=== PATIENT | female | born 1965 | race Caucasian/White ===

== ENCOUNTER 2019-05-27 11:06 | Outpatient (CLI) | payer MEDICARE, SELFPAY ==
--- NOTE | ~2019-05-27 | US_ITS ---
EXAMINATION: US abdomen complete EXAM DATE: 05/27/2019 11:56 INDICATION: Right upper quadrant pain. TECHNIQUE: Multiple grayscale and Doppler images of the complete abdomen were obtained (by a technolo gist who performed the scan) and subsequently reviewed. There is no prior study for comparison. FINDINGS: The abdominal aorta is normal in caliber. Visualized portion IVC is patent. The pancreatic head a nd body are normal in appearance. The pancreatic tail is not visualized. The liver has normal echogenicity and contour. There are no focal liver lesions identified. There is no evidence of intrahepatic biliary duct dilation. Portal venous flow was seen in the hepatopedal , normal direction and has normal Doppler waveform. Common bile duct measures 3 mm, which is normal. The gallbladder wall is normal in thickness, with ex pected amount of distention. No sonographic evidence of pericholecystic fluid. There is no cholelit hiases. Technologist performing exam reports patient did not demonstrate sonographic Barrera's sign. Please note that this sign is less reliable in patients who have received pain medication. Right kidney: There is normal contour and echogenicity. It measures 11.0 x 6.0 x 7.2 centimeters. There are no focal renal lesions identified. There is no hydronephrosis. Left kidney: There is normal contour and echogenicity. It measures 11.3 x 6.2 x 6.8 centimeters. T here are no focal renal lesions identified. There is no hydronephrosis. The spleen measures 12.4 centimeters and is morphologically normal. IMPRESSION: 1. Unremarkable complete abdominal ultrasound exam. Reviewed, dictated and finalized at location B. DING CLEANING SUPERVISOR
== END 2019-05-27 11:07 | disposition home or self-care (01) ==
PROVIDERS: PCP Internal Medicine; Visit Provider Internal Medicine
DX: R10.11 Right upper quadrant pain (principal); R10.12 Left upper quadrant pain
CPT/HCPCS: 76700

== ENCOUNTER 2019-05-27 12:27 | Observation (INO) | payer MEDICARE, SELFPAY ==
[2019-05-27] VITALS (15 sets, daily range): BP systolic 116–146; BP diastolic 61–78; PULSE 60–70; RESP 8–22; TEMP 36.3–36.8; O2SAT 97–100; BMI 40.8
--- NOTE | ~2019-05-27 | XR_ITS ---
EXAMINATION: XR chest 2V DATE: 05/27/2019 13:19 INDICATION: Low chest pain. TECHNIQUE: Frontal and lateral views of the chest were obtained. COMPARISON: Chest 2 views 05/07/2004, chest CT 05/07/2004 FINDINGS: The chest demonstrates clear lungs without pneumonia, pleural effusion, or pneumothorax. Th e heart size is normal. IMPRESSION: 1. No acute cardiopulmonary disease. Reviewed, dictated and finalized at location A. 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
--- NOTE | 2019-05-27 12:36 | ECG_ITS ---
Measurements Intervals [place] Rate: 67 P: 43 SC: 151 QRS: 48 QRSD: 106 T: 52 QT: 405 QTc: 428 Interpretive Statements SINUS RHYTHM BASELINE ARTIFACT- I, II, III, AVR, AVL NORMAL ECG Electronically Signed On 05-27-2019 16:04:11 CHIEF MEDICAL DIRECTOR by Lupillo Parsons D.O.
--- NOTE | 2019-05-27 12:49 | ED.CHESTPAIN ---
HPI - Chest Pain General Chief Complaint: Chest Pain Stated Complaint: cp Time Seen by Provider: 05/27/19 12:44 Source: patient Mode of arrival: ambulatory Limitations: no limitations History of Present Illness HPI narrative: The pt is a 54 y/o female who presents to the ED with c/o intermittent CP that began over 2 days ago. The pt's pain began under her rt breast and then began to radiate throughout her chest and to her back. She describes the pain as a squeezing and tightness. The pt states that she was at [facility] 2 days ago for the same sx, where her EKG, cardiac enzymes, and CT ABD were all negative. The only thing [facility] doctors could find was mild colitis, but the pt states that she would not be at the ED if her pain was only mild. Her pain is alleviated with OTC pain medications but only for a short amount of time. The pt reports nausea and vomiting from the pain. Her PCP, Dr. Garcia, ordered a ABD US this morning to rule out cholelithiasis, which also came back negative. 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 The pt denies being on any blood thinners but notes a PMHX of HTN, HLD, DM, and asthma. Both the pt's mother and father have cardiac problems but they did not start until the age of 70. MD complaint: chest pain Onset (ago): day(s) (over 2 days ago) Timing of current episode: other (intermittent) Pain location: other (chest) Pain radiation: back Quality: tightness and other (squeezing) Relieving factors: other (OTC pain medication) Associated symptoms: nausea and vomiting Related Data Home Medications Medication Instructions Recorded Confirmed albuterol sulfate 90 mcg/actuation 1 puff INHALATION Q4H PRN 04/14/19 aerosol inhaler ascorbate calcium (vitamin C) 500 500 mg PO DAILY 04/14/19 mg tablet azelastine 0.15 % (205.5 mcg) 2 spray NASAL DAILY 04/14/19 nasal spray calcium carbonate 600 mg calcium 600 mg PO DAILY 04/14/19 (1,500 mg) tablet fentanyl 12 mcg/hr transdermal 1 patch TRANSDERM Q72H 04/14/19 patch hydroxychloroquine 200 mg tablet 200 mg PO BID 04/14/19 meloxicam 15 mg tablet 15 mg PO DAILY 04/14/19 metformin 1,000 mg tablet 1,000 mg PO DAILY 04/14/19 montelukast 10 mg tablet 10 mg PO DAILY 04/14/19 oxycodone-acetaminophen 10 mg-325 1 tablet PO .Q12 PRN tablet 04/14/19 mg tablet Allergies Allergy/AdvReac Type Severity Reaction Status Date / Time Cephalosporins Allergy Mild Swelling Verified 05/27/19 12:39 cephalexin Allergy Unknown Swelling Verified 05/27/19 12:39 Review of Systems Review of Systems: All systems reviewed & are unremarkable except as noted in HPI and below Cardiovascular: Cardiovascular: Reports chest pain Gastrointestinal: Gastrointestinal: Reports nausea and Reports vomiting PMFSH Past Medical History Medical History (Updated 05/27/19 @ 14:34 by Juliano Alexander MD) Asthma Back pain Bronchitis Cataracts, bilateral Cervical cancer Depression Diabetes Eczema Endometriosis GERD (gastroesophageal reflux disease) Hypertension Irritable bowel Kidney stones Liver disease fatty liver Pneumonia Sleep apnea STD (sexually transmitted disease) Tuberculosis UTI (urinary tract infection) Surgical History Surgical History (Updated 05/27/19 @ 14:01 by Cherri Zhang) H/O local excision of skin lesion H/O: hysterectomy Hx of appendectomy Hx of section Social History Social History Smoking status: Current every day smoker Alcohol intake: never Gender identity (if verbalized by the patient): Female Exam Narrative: Exam Narrative: General appearance: Well-developed, well-nourished Skin: Normal color Head: Normocephalic, nontraumatic Eyes: Clear conjunctiva ENT: Oropharynx normal, ears normal, nose normal Neck: Supple, nonten
[2019-05-27 12:51] LABS: Basophils Percent Auto 0.5 % (0.2-1.2); Eosinophils Absolute Auto 0.1 K/mm3 (0-0.3); Eosinophils Percent Auto 0.7 % (0-4.4); Hematocrit 44.9 % (37.0-47.0); Hemoglobin 14.1 g/dL (12.0-15.0); Immature Granulocyte Absolute 0.01 K/mm3 (0.00-0.031); Immature Granulocyte Percent A 0.1 % (0-0.5); Lymphocytes Absolute Auto 2.51 K/mm3 (0.9-3.2); Lymphocytes Percent Auto 29.3 % (18.3-44.2); Mean Corpuscular HGB Conc 31.4 g/dl (32-36); Mean Corpuscular Hemoglobin 29.1 pg (26-34); Mean Corpuscular Volume 92.6 fl (80-100); Mean Platelet Volume 9.4 fl (7.4-10.4); Monocytes Absolute Auto 0.5 K/mm3 (0.1-0.6); Monocytes Percent Auto 5.5 % (2.6-8.5); Neutrophils Absolute Auto 5.5 K/mm3 (1.3-6.7); Neutrophils Percent Auto 63.9 % (45.5-73.1); Platelet Count Result 249 k/mm3 (150-375); Red Blood Count 4.85 M/mm3 (4.2-5.4); Red Cell Distribution Width 13.2 % (11.5-14.5); White Blood Count 8.6 K/mm3 (4.5-10.0)
[2019-05-27 12:59] LABS: INR 0.9; Prothrombin Time 12.2 Seconds (11.1-14.7)
[2019-05-27 13:00] LABS: Partial Thromboplastin Time 30.3 SECONDS (22.3-36.8)
[2019-05-27 13:02] LABS: Blood Urea Nitrogen 22 mg/dL (7-17); Calcium 9.3 mg/dL (8.4-10.2); Carbon Dioxide 26 mmol/L (22-30); Chloride 103 mmol/L (98-107); Estimated CRCL calculation 155 ml/min; Estimated Glomerular Filt Rate > 60; Glucose 112 mg/dL (65-105); Potassium 3.8 mmol/L (3.4-5.0); Sodium 139 mmol/L (137-145)
[2019-05-27 13:14] LABS: Troponin I < 0.012 ng/mL (0.000-0.034)
[2019-05-27 13:23] LABS: D Dimer 0.46 ug/mL (<0.48)
[2019-05-27] MEDS: MORPHINE SULFATE 4 MG/ML INJ IV PUSH (14:45)
[2019-05-27] MEDS: ONDANSETRON INJ 4 MG/2 ML VIAL IV PUSH (14:45)
[2019-05-27] MEDS: ENOXAPARIN 100 MG/ML SYRINGE 110 MG SUB-Q (14:46)
[2019-05-27] MEDS: ASPIRIN 81 MG CHEWABLE TABLET 324 MG PO (15:09)
--- NOTE | 2019-05-27 15:37 | PC.NURSE ---
This patient, Pauline Cneteno, was admitted to IMU Room 205-01. Patient/family oriented to hospital policies and general routines including ID bracelet, bed and alarms, visiting hours, pain management, procedures, bathroom and other care routines, personal items, smoking policy, room service/diet, and visiting hours. Valuables list has been completed. Information on how to activate the Rapid Response Team has been discussed. Patient/Family are encouraged to report perceived risks to care and to ask questions if they do not understand what they are told or what they should do.
--- NOTE | 2019-05-27 15:38 | PM.IMHP ---
H&P: HPI History of Present Illness Chief complaint: Chest Pain Narrative: Pauline Centeno is a 54 year old female smoker with history of type 2 diabetes mellitus, hypertension, hyperlipidemia, sleep disorder, and several other comorbidities who presented to the emergency department earlier this afternoon via private vehicle for evaluation of chest pain. Sometime on Saturday, she developed nausea and vomiting followed by diffuse chest pain. When she points, however, it seems to be more in the lower chest/upper abdominal area. The pain was pretty severe and she was seen at [facility] in the eligibility services representative hours Saturday. At that time, they did not believe it was a cardiac problem, and a subsequent CT of the abdomen and pelvis showed ?mild colitis? and she was discharged with antibiotics. She was sleepy the rest of the day due to medication received at the emergency department. Later that evening, she once again developed the nausea vomiting and pain. She describes the pain as a ?severe turning? pain which radiates diffusely across the upper abdomen/low chest region. It seems to be improved somewhat with eating and she also notes early satiety. Her primary provider ordered a right upper quadrant ultrasound today, which was unremarkable. Due to continued pain, she came in for evaluation. She has not had exertional chest pain or shortness of breath. She denies GERD symptoms but apparently had an EGD done per Dr. Arnold several years ago which showed findings of reflux esophagitis. She does not take any medication for this, due to lack of symptoms. It is noted that she takes Mobic daily, and she also takes [facility] extra-strength headache relief on a daily basis, sometimes up to 6 times per day. Ingredients of that drug include acetaminophen 250 milligrams, aspirin 250 milligrams, and caffeine 65 milligrams. With further questioning, she has dysphagia, mainly with meats and occasionally breads and that has been ongoing for 1 year. She denies hematemesis, melena, and hematochezia. She has not had diarrhea. Review of Systems Review of Systems: Narrative: Twelve systems were reviewed with pertinent positives and negatives as per HPI. No fever, chills, or sweats. No recent cold or flu-like symptoms. Some dysphagia as detailed above. No nausea or vomiting since admission. She has chronic pain from inflammatory arthritis and fibromyalgia, and is on long-term opiate therapy. She also has a sleep disorder, and did use a CPAP for 4 years however it did not seem to help her. She has been told that she does not going to dull to sleep and that she wakes up 90 times per hour, according to a sleep study. No orthopnea or PND. She denies edema. No history of gallbladder disease or pancreatitis. Except as documented, all other systems were reviewed and are negative. [facility] Past Medical History Medical History Asthma Back pain Cataracts, bilateral Cervical cancer Status post LEEP. Attempts to remove her cervix were unsuccessful due to severe adhesions to the bladder, reportedly. Chronic pain Depression Eczema Endometriosis Fatty liver Fibromyalgia GERD (gastroesophageal reflux disease) Hypertension Inflammatory arthritis Irritable bowel Kidney stones Morbidly obese Obstructive sleep apnea Moderate obstructive sleep apnea on sleep study in August 2016. STD (sexually transmitted disease) Tobacco dependence Tuberculosis Treated for active tuberculosis at age 9 months. Type 2 diabetes mellitus Surgical History Surgical History History of local excision of skin lesion Status post appendectomy Status post section Status post laparoscopic supracervical hysterectomy Family History Family History Father Family history of tuberculosis, Onset A
[2019-05-27] MEDS: NICOTINE (*PBKC) 21 MG PATCH 1 PATCH TRANSDERM (16:10)
[2019-05-27 16:19] LABS: Glucose Point of Care 113 (65-105)
[2019-05-27 16:29] LABS: Troponin I < 0.012 ng/mL (0.000-0.034)
[2019-05-27 19:27] LABS: Troponin I < 0.012 ng/mL (0.000-0.034)
[2019-05-27 20:20] LABS: Glucose Point of Care 101 (65-105)
[2019-05-27] MEDS: GABAPENTIN 300 MG CAPSULE PO (20:43)
[2019-05-27] MEDS: BELLADONNA ALK/PHENOB ELIX 10 ML, MAG HYDROX/ALUMINUM HYD/SIMETH 30 ML, LIDOCAINE HCL 2... PO (20:43)
[2019-05-27] MEDS: HYDROXYCHLOROQUINE SULFATE 200 MG TABLET PO (20:44)
[2019-05-27] MEDS: MELATONIN 3 MG TABLET PO (21:13)
[2019-05-28] VITALS (12 sets, daily range): BP systolic 114–132; BP diastolic 62–70; PULSE 57–79; RESP 14–20; TEMP 36.4–36.7; O2SAT 97–100; BMI 40.1
[2019-05-28 05:23] LABS: Blood Urea Nitrogen 22 mg/dL (7-17); Calcium 8.8 mg/dL (8.4-10.2); Carbon Dioxide 29 mmol/L (22-30); Chloride 104 mmol/L (98-107); Estimated CRCL calculation 153 ml/min; Estimated Glomerular Filt Rate > 60; Glucose 91 mg/dL (65-105); Potassium 3.9 mmol/L (3.4-5.0); Sodium 138 mmol/L (137-145)
--- NOTE | 2019-05-28 06:00 | ECG_ITS ---
Measurements Intervals [place] Rate: 58 P: 40 DC: 144 QRS: 57 QRSD: 101 T: 56 QT: 439 QTc: 433 Interpretive Statements SINUS BRADYCARDIA INCOMPLETE RIGHT BUNDLE BRANCH BLOCK BORDERLINE ST ABNORMALITY- ANTEROLAT/INF LEADS BORDERLINE ECG Electronically Signed On 05-28-2019 11:03:33 MANAGER PRESENTATION by Lupillo Parsons D.O.
[2019-05-28] MEDS: FENTANYL 12 MCG/HR PATCH TRANSDERM (08:01)
--- NOTE | 2019-05-28 08:02 | WPDGICN ---
Assessment and Plan Additional Plan Patient with the acute onset of epigastric abdominal pain associated nausea vomiting. Rec: 1. Continue with present therapy 2. Proceed with gastroscopy later this morning. I discussed the procedure with the patient including the risks involved she is agreeable to proceed. GI Consult Note Consult date/time: 05/28/19 08:02 HPI: Pauline Centeno is a 54 year old W female admitted with a 2 day history of epigastric abdominal pain lower chest pain associated nausea vomiting. No hematemesis patient is improved but still persistent. She was seen in the emergency room at [facility] on Saturday evaluation there was negative a CT scan revealed questionable colitis. Patient has had no change in her bowel habits. Patient is also on metformin which could be contributing to her loose stools. Ultrasound here was unremarkable. Laboratory studies are unremarkable. Patient has been on Mobic for least a couple years. Certainly raises a concern for peptic ulcer disease. Patient states he had a gastroscopy performed greater than 10 years ago. [facility] Past Medical History Medical History Asthma Back pain Cataracts, bilateral Cervical cancer Status post LEEP. Attempts to remove her cervix were unsuccessful due to severe adhesions to the bladder, reportedly. Chronic pain Depression Eczema Endometriosis Fatty liver Fibromyalgia GERD (gastroesophageal reflux disease) Hypertension Inflammatory arthritis Irritable bowel Kidney stones Morbidly obese Obstructive sleep apnea Moderate obstructive sleep apnea on sleep study in August 2016. STD (sexually transmitted disease) Tobacco dependence Tuberculosis Treated for active tuberculosis at age 9 months. Type 2 diabetes mellitus Surgical History Surgical History History of local excision of skin lesion Status post appendectomy Status post section Status post laparoscopic supracervical hysterectomy Family History Family History Father Family history of tuberculosis, Onset Age: 86 Cerebrovascular accident, Onset Age: 86 Mother Family history of tuberculosis Family history of thyroid disease Diabetes mellitus Family history of obesity Family history of mental disorder Hypertension Patient's mother is in good health Family history of cardiovascular disease Family history of hepatitis Family history of congestive heart failure Sibling Family history of osteoporosis Depression Asthma Social History Social History Social History: The patient lives in [place]. She is . She designates her mother as her surrogate decision maker and wishes to be a full code. She smokes up to 1/2 packs of cigarettes per day. No alcohol or drug abuse. Smoking status: Current every day smoker Alcohol intake: never Substance use: never Gender identity (if verbalized by the patient): Female Spiritual care concerns: No Agree to blood products: Yes Meds Home Medications and Allergies Home Medications Medication Instructions Recorded Confirmed Type lisinopril 20 mg tablet 20 mg PO DAILY #90 tablet 03/31/19 05/27/19 Rx albuterol sulfate 90 mcg/actuation 1 puff INHALATION Q4H PRN 04/14/19 05/27/19 History aerosol inhaler ascorbate calcium (vitamin C) 500 500 mg PO DAILY 04/14/19 05/27/19 History mg tablet azelastine 0.15 % (205.5 mcg) 2 spray NASAL DAILY 04/14/19 05/27/19 History nasal spray calcium carbonate 600 mg calcium 600 mg PO DAILY 04/14/19 05/27/19 History (1,500 mg) tablet fentanyl 12 mcg/hr transdermal 1 patch TRANSDERM Q72H 04/14/19 05/27/19 History patch hydroxychloroquine 200 mg tablet 200 mg PO BID 04/14/19 05/27/19 History
[2019-05-28] MEDS: LACTATED RINGERS 1,000 ML 150 ML IV CONT (10:00)
[2019-05-28 10:03] LABS: Glucose Point of Care 99 (65-105)
--- NOTE | 2019-05-28 10:57 | WPDANESEPPF ---
Anes - Initial Pre Proc Eval Procedure: Operation Date: 05/28/19 11:00 Proposed Procedures p Esophagogastroduodenoscopy - Guillermo Piper MD Date/Time: 05/28/19 10:57 Surgeon: Riri Tobias MD Pre Op Diagnosis: Chest Pain Patient Data Age: 54 Gender: F Height: 5 ft 3.5 in Weight: 104.6 kg Last Vital Signs Temp 97.5 F L 05/28/19 09:40 Pulse 59 L 05/28/19 09:40 Resp 18 05/28/19 09:40 BP 124/67 05/28/19 09:40 Pulse Ox 99 05/28/19 09:40 Allergies Allergy/AdvReac Type Severity Reaction Status Date / Time Cephalosporins Allergy Mild Swelling Verified 05/28/19 09:45 cephalexin Allergy Unknown Swelling Verified 05/28/19 09:45 Home Medications Medication Instructions Recorded Confirmed Type lisinopril 20 mg tablet 20 mg PO DAILY #90 tablet 03/31/19 05/27/19 Rx albuterol sulfate 90 mcg/actuation 1 puff INHALATION Q4H PRN 04/14/19 05/27/19 History aerosol inhaler ascorbate calcium (vitamin C) 500 500 mg PO DAILY 04/14/19 05/27/19 History mg tablet azelastine 0.15 % (205.5 mcg) 2 spray NASAL DAILY 04/14/19 05/27/19 History nasal spray calcium carbonate 600 mg calcium 600 mg PO DAILY 04/14/19 05/27/19 History (1,500 mg) tablet fentanyl 12 mcg/hr transdermal 1 patch TRANSDERM Q72H 04/14/19 05/27/19 History patch hydroxychloroquine 200 mg tablet 200 mg PO BID 04/14/19 05/27/19 History meloxicam 15 mg tablet 15 mg PO DAILY 04/14/19 05/27/19 History metformin 1,000 mg tablet 1,000 mg PO DAILY 04/14/19 05/27/19 History montelukast 10 mg tablet 10 mg PO DAILY 04/14/19 05/27/19 History oxycodone-acetaminophen 10 mg-325 1 tablet PO Q8-12H PRN tablet 04/14/19 05/27/19 History mg tablet rosuvastatin 5 mg tablet 5 mg PO .EVERY OTHER DAY #90 tablet 05/07/19 05/27/19 Rx amoxicillin-pot clavulanate 1 tablet PO Q12H 05/27/19 05/27/19 History gabapentin 300 mg PO HS 05/27/19 05/27/19 History melatonin 1 mg PO HS PRN 05/27/19 05/27/19 History metronidazole 500 mg PO Q6H 05/27/19 05/27/19 History Laboratory Tests 05/27/19 05/27/19 05/27/19 12:41 12:41 12:41 WBC 8.6 K/mm3 K/mm3 (4.5-10.0) RBC 4.85 M/mm3 M/mm3 (4.2-5.4) Hgb 14.1 g/dL g/dL (12.0-15.0) Hct 44.9 % % (37.0-47.0) MCV 92.6 fl fl (80-100) MCH 29.1 pg pg (26-34) MCHC 31.4 g/dl L g/dl (32-36) RDW 13.2 % % (11.5-14.5) Plt Count 249 k/mm3 k/mm3 (150-375) MPV 9.4 fl fl (7.4-10.4) Immature Gran % (Auto) 0.1 % % (0-0.5) Neut % (Auto) 63.9 % % (45.5-73.1) Lymph % (Auto) 29.3 % % (18.3-44.2) [place] % (Auto) 5.5 % % (2.6-8.5) Eos % (Auto) 0.7 % % (0-4.4) Baso % (Auto) 0.5 % % (0.2-1.2) Lymph # (Auto) 2.51 K/mm3 K/mm3 (0.9-3.2) [place] # (Auto) 0.5 K/mm3 K/mm3 (0.1-0.6) Eos # (Auto) 0.1 K/mm3 K/mm3 (0-0.3) Baso # (Auto) 0.0 K/mm3 K/mm3 (0.0-0.1) Abs Immat Gran (auto) 0.01 K/mm3 K/mm3 (0.00-0.031) Absolute Neuts (auto) 5.5 K/mm3 K/mm3 (1.3-6.7) Absolute Nucleated RBC 0.0 K/mm3 K/mm3 (0.0-0.012) Nucleated RBC % 0.0 % % (0.0-0.2) PT 12.2 Seconds Seconds (11.1-14.7) INR 0.9 APTT 30.3 SECONDS SECONDS (22.3-36.8) D-Dimer Sodium 139 mmol/L mmol/L (137-145) Potassium 3.8 mmol/L mmol/L (3.4-5.0) Chloride 103 mmol/L mmol/L (98-107) Carbon Dioxide 26 mmol/L mmol/L (22-30) BUN 22 mg/dL H mg/dL (7-17) Creatinine 0.40 mg/dL L mg/dL (0.7-1.0) Estim Creat Clear Calc 155 ml/min ml/min Estimated GFR > 60 (59 - ) Glucose 112 mg/dL H mg/dL (65-105) POC Capillary Glucose Calcium 9.3 mg/dL mg/dL (8.4-10.2) Troponin I < 0.012 ng/mL ng/mL (0.000-0.034) 05/27/19 05/27/19 05/27/19 12
[2019-05-28 12:03] LABS: Glucose Point of Care 88 (65-105)
[2019-05-28] MEDS: HYDROXYCHLOROQUINE SULFATE 200 MG TABLET PO (12:43)
[2019-05-28] MEDS: lisinopriL 20 MG TABLET PO (12:43)
[2019-05-28] MEDS: MONTELUKAST SODIUM 10 MG TABLET PO (12:43)
[2019-05-28] MEDS: CALCIUM CARBONATE (OSCAL) 500 MG TABLET PO (12:43)
[2019-05-28] MEDS: PANTOPRAZOLE 40 MG TABLET PO (12:43)
[2019-05-28] MEDS: ASCORBIC ACID 500 MG TABLET PO (12:44)
[2019-05-28] MEDS: AZELASTINE HCL NASAL 0.1% 137 MCG/SPR 30 ML BTL 2 SPRAY NASAL (12:44)
--- NOTE | 2019-05-28 18:29 | PM.DS ---
DS: Diagnosis Discharge Diagnosis (1) Chest pain: Qualifiers: Chest pain type: unspecified Qualified Code(s): R07.9 - Chest pain, unspecified Code(s): R07.9 - Chest pain, unspecified Status: Acute Assessment and Plan: Mild reproducible pain on palpation of the anterior chest wall. She has risk factors for cardiac disease, and thus was admitted to rule out acute coronary syndrome Pain was relieved by GI cocktail, and will follow up with primary care for possible stress testing in the future (2) Epigastric pain: Code(s): R10.13 - Epigastric pain Status: Acute Assessment and Plan: Symptoms concerning for esophagitis, gastritis, or even peptic ulcers. She also notes dysphagia as detailed in HPI. GI cocktail relieved pain EGD revealed hiatal hernia, gastritis, duodenitis, erosions in the antrum and duodenal ulcer. All thought contributing to her symptomatology. She will hold all nonsteroidal medications and Protonix 40 b.i.d. for 2 weeks followed by 40 daily. (3) Type 2 diabetes mellitus: Code(s): E11.9 - Type 2 diabetes mellitus without complications Status: Acute Assessment and Plan: Held metformin while hospitalized. Initiated sliding scale insulin, Accu-Cheks, and hypoglycemic protocol. (4) Essential hypertension: Code(s): I10 - Essential (primary) hypertension Status: Acute Assessment and Plan: Blood pressures were reviewed and are well controlled. Continued lisinopril (5) Chronic pain: Code(s): G89.29 - Other chronic pain Status: Acute Assessment and Plan: Due to inflammatory arthritis and fibromyalgia. Continue fentanyl patch and Percocet as needed. (6) Inflammatory arthritis: Code(s): M19.90 - Unspecified osteoarthritis, unspecified site Status: Acute Assessment and Plan: Continue hydroxychloroquine. But meloxicam was held (7) Tobacco dependence: Code(s): F17.200 - Nicotine dependence, unspecified, uncomplicated Status: Acute Assessment and Plan: Smoking cessation is imperative and encouraged. DS: Summary Hospital Course Hospital Course: 54-year-old white female admitted with lower chest upper abdominal discomfort atypical for coronary disease but given her risk factors was admitted for observation. Troponins were negative as was EKG and pain was relieved with GI cocktail.. She underwent EGD the day of discharge which revealed hiatal hernia, gastritis with gastric erosions, duodenitis with duodenal ulcer. She will hold anti-inflammatory medication nonsteroidals and be on proton pump inhibitor 40 b.i.d. of Protonix for 2 weeks and 40 daily. See her primary care in 2 weeks and GI in 4-6 weeks Time Spent with Patient Time attestation: Total time spent providing and/or coordinating discharge services: 35 minutes Exam Narrative: Exam Narrative: Condition on discharge: Blood pressure 118/64 pulse is 64 and regular afebrile Lungs clear CV regular rate rhythm Abdomen is soft minimal epigastric tenderness Extremities without edema Neuro alert pleasant cooperative no focal deficits DS: Data Data Completed and Pending Pending studies at discharge: Pending at discharge 05/28/19 11:42 Surgical [PTH] Routine Labs on day of discharge: Labs from last 24 hours 05/28/19 05/28/19 05/28/19 12:01 09:58 04:30 Sodium 138 Potassium 3.9 Chloride 104 Carbon Dioxide 29 BUN 22 H Creatinine 0.40 L Estim Creat Clear Calc 153 Estimated GFR > 60 Glucose 91 POC Capillary Glucose 88 99 Calcium 8.8 Troponin I 05/27/19 05/27/19 20:08 18:58 Sodium Potassium Chloride Carbon Dioxide BUN Creatinine Estim Creat Clear Calc Estimated GFR Glucose POC Capillary Glucose 101 Calcium Troponin I < 0.012 Discharge Plan Discharge Attending physician on d
== END 2019-05-28 15:23 | disposition home or self-care (01) ==
LOC: ANHED 14:34 → ANHIMU 21:53
PROVIDERS: Internal Medicine Gastroenterology; Physician Assistant; Admitting Provider Hospitalist; Emergency Provider Emergency Medicine; PCP Internal Medicine; Visit Provider Internal Medicine
PROC: 0DJ08ZZ Inspection of Upper Intestinal Tract, Via Natural or Artificial Opening Endoscopic (ICD-10-PCS; CPT 43235; principal; 2019-05-28 11:00)
DX: K21.0 Gastro-esophageal reflux disease with esophagitis (principal); K22.2 Esophageal obstruction; K44.9 Diaphragmatic hernia without obstruction or gangrene; K29.50 Unspecified chronic gastritis without bleeding; K25.7 Chronic gastric ulcer without hemorrhage or perforation; K26.9 Duodenal ulcer, unspecified as acute or chronic, without hemorrhage or perforation; K29.80 Duodenitis without bleeding; R07.9 Chest pain, unspecified; E11.9 Type 2 diabetes mellitus without complications; I10 Essential (primary) hypertension; G89.29 Other chronic pain; M19.90 Unspecified osteoarthritis, unspecified site; M79.7 Fibromyalgia; J45.909 Unspecified asthma, uncomplicated; F17.210 Nicotine dependence, cigarettes, uncomplicated; E78.5 Hyperlipidemia, unspecified; G47.33 Obstructive sleep apnea (adult) (pediatric); E66.01 Morbid (severe) obesity due to excess calories; Z68.41 Body mass index [BMI] 40.0-44.9, adult; Z79.84 Long term (current) use of oral hypoglycemic drugs; Z79.899 Other long term (current) drug therapy; Z85.41 Personal history of malignant neoplasm of cervix uteri; Z86.11 Personal history of tuberculosis
CPT/HCPCS: 43239; 36415; 71046; 80048; 84484; 85025; 85380; 85610; 85730; 88305; 88342; 93005; 96372; 96374; 96375; 99285; A9270; G0378; J1650; J2001; J2270; J2405; J2704; J7120

== ENCOUNTER 2019-11-10 10:23 | Outpatient (CLI) | payer MEDICARE, SELFPAY ==
--- NOTE | ~2019-11-10 | XR_ITS ---
XR hip BI 2V w AP pelvis 11/10/2019 11:06 Indication: Hip pain Procedure: AP pelvis and 2 views of each hip Comparison: No prior studies for comparison. Findings: Pelvic rings are intact. Sacral foramen are symmetric. No fracture or traumatic malalignmen t. No significant joint space narrowing. Mild lower lumbar spondylosis. Impression: 1: No significant bone or joint abnormality. Reviewed, dictated and finalized at location B. Impression: 1: No significant bone or joint abnormality.
--- NOTE | ~2019-11-10 | XR_ITS ---
EXAMINATION: XR chest 2V 11/10/2019 11:06 INDICATION: Shortness of breath. PROCEDURE: 2 view chest COMPARISON: 05/27/2019 FINDINGS: The lungs are clear. The cardiomediastinal silhouette is within normal limits. There are no pleural effusions. There is no pneumothorax suspected. IMPRESSION: 1: NO ACUTE CARDIOPULMONARY DISEASE. Reviewed, dictated and finalized at location B.
--- NOTE | ~2019-11-10 | XR_ITS ---
XR knee RT min 4V, XR knee LT min 4V 11/10/2019 11:06 Indication: Bilateral knee pain Procedure: 4 views each knee Comparison: No prior studies for comparison. Findings: There is moderate-severe tricompartment osteoarthritis of the knees which is relatively sym metric. No fracture, subluxation or dislocation. Small loose bodies present superior to the patellofe moral compartment. No joint effusion. Impression: 1: Moderate-severe bilateral tricompartment osteoarthritis of the knees. Reviewed, dictated and finalized at location B. Impression: 1: Moderate-severe bilateral tricompartment osteoarthritis of the knees. Impression: 1: Moderate-severe bilateral tricompartment osteoarthritis of the knees.
== END 2019-11-10 10:24 | disposition home or self-care (01) ==
PROVIDERS: Referring Provider Internal Medicine; Visit Provider Physical Medicine & Rehabilitation Pain Medicine
DX: R06.02 Shortness of breath (principal); M25.551 Pain in right hip; M25.552 Pain in left hip; M17.0 Bilateral primary osteoarthritis of knee
CPT/HCPCS: 71046; 73521; 73564

== ENCOUNTER 2020-03-31 08:42 | Outpatient (CLI) | payer MEDICARE, SELFPAY ==
--- NOTE | ~2020-03-31 | US_ITS ---
US arterial ankle brachial ind INDICATION: Peripheral vascular disease. TECHNIQUE: Segmental pressures and plethysmographic and Doppler waveforms of the brachial and lower e xtremity arteries were obtained. COMPARISON: None. FINDINGS: Right and left brachial artery pressures of 170 mm Hg and 163 mm Hg, respectively, are concordant (no rmal difference <= 30 mmHg). The right ankle-brachial index (JOEL) is 0.91 (normal >= 0.9-1.0). The right great toe-brachial index (TBI) is 0.88 (normal >= 0.60). The left JOEL is 0.92. The left TBI is 0.91. IMPRESSION: 1. Normal ankle-brachial indices. Reviewed, dictated and finalized at location B. ECTOR AUTOMATIC TYPEWRITER
[2020-03-31 09:34] LABS: Basophils Absolute Auto 0.1 K/mm3 (0.0-0.1); Eosinophils Percent Auto 0.7 % (0-4.4); Hemoglobin 14.3 g/dL (12.0-15.0); Immature Granulocyte Absolute 0.02 K/mm3 (0.00-0.031); Immature Granulocyte Percent A 0.3 % (0-0.5); Lymphocytes Absolute Auto 2.41 K/mm3 (0.9-3.2); Lymphocytes Percent Auto 39.3 % (18.3-44.2); Mean Corpuscular HGB Conc 32.5 g/dl (32-36); Mean Corpuscular Hemoglobin 29.6 pg (26-34); Mean Corpuscular Volume 91.1 fl (80-100); Mean Platelet Volume 9.4 fl (7.4-10.4); Monocytes Absolute Auto 0.4 K/mm3 (0.1-0.6); Monocytes Percent Auto 7.2 % (2.6-8.5); Neutrophils Absolute Auto 3.2 K/mm3 (1.3-6.7); Neutrophils Percent Auto 51.5 % (45.5-73.1); Platelet Count Result 220 k/mm3 (150-375); Red Blood Count 4.83 M/mm3 (4.2-5.4); Red Cell Distribution Width 12.7 % (11.5-14.5); White Blood Count 6.1 K/mm3 (4.5-10.0)
[2020-03-31 09:47] LABS: Alanine Aminotransferase 13 U/L (4-35); Albumin Level 4.3 g/dL (3.5-5.1); Alkaline Phosphatase 66 U/L (38-126); Anion Gap 4 mmol/L (8-16); Aspartate Amino Transferase 18 U/L (14-36); Bilirubin,Total 0.3 mg/dL (0.2-1.3); Blood Urea Nitrogen 17 mg/dL (7-17); Calcium 9.4 mg/dL (8.4-10.2); Carbon Dioxide 30 mmol/L (22-30); Chloride 106 mmol/L (98-107); Estimated Glomerular Filt Rate > 60; Glucose 92 mg/dL (65-105); Sodium 140 mmol/L (137-145)
[2020-03-31 09:55] LABS: Hemoglobin A1C 5.4 % (<5.7)
[2020-03-31 09:59] LABS: Creatinine Urine 153.6 mg/dL
[2020-03-31 10:04] LABS: MALB Creatinine Ratio 6.7 mg/g (0-30); Microalbumin Urine Random 10.3 mg/L (0-16.7)
== END 2020-03-31 08:43 | disposition home or self-care (01) ==
PROVIDERS: Visit Provider Internal Medicine
DX: E11.9 Type 2 diabetes mellitus without complications (principal); I73.9 Peripheral vascular disease, unspecified
CPT/HCPCS: 36415; 80053; 82043; 83036; 85025; 93922

== ENCOUNTER 2020-06-29 14:53 | Outpatient (CLI) | payer MEDICARE, SELFPAY ==
--- NOTE | ~2020-06-29 | XR_ITS ---
EXAMINATION: XR foot LT standing 2V EXAM DATE: 06/29/2020 15:23 INDICATION: [place] toed. TECHNIQUE: Frontal and lateral projections of the left foot standing. Correlation is made to contral ateral foot same date. FINDINGS: Some widening between the left 1st, 2nd and 2nd and 3rd digits. Mild pes planus. Small inf erior calcaneal spur. There are no acute fractures or dislocations identified. There is no subcutane ous gas. The soft tissue is unremarkable. There are no radiopaque foreign bodies. IMPRESSION: Mild pes planus. Some congenital widening between 1st-3rd toes. Reviewed, dictated and finalized at location A. CAR SALESPERSON
--- NOTE | ~2020-06-29 | XR_ITS ---
EXAMINATION: XR hand BI arthritis min 3V DATE: 06/29/2020 15:23 INDICATION: Unspecified osteoarthritis TECHNIQUE: Posteroanterior, lateral, and oblique views of the left and of the right hands as well as a ballcatchers view of both hands were obtained. COMPARISON: None. FINDINGS: There is no fracture, dislocation, or subluxation. Advanced osteoarthritis is noted in the first carp ometacarpal joint on the left. There is mild osteoarthritis of the left triscaphe joint and in multip le interphalangeal joints of the left hand. There is mild osteoarthritis of the triscaphe and first c arpometacarpal joints on the right. The soft tissues are unremarkable. No erosions are identified. IMPRESSION: 1. Osteoarthritis without acute osseous abnormality. Reviewed, dictated and finalized at location A. ER MIXER
--- NOTE | ~2020-06-29 | XR_ITS ---
EXAMINATION: XR foot RT standing 2V EXAM DATE: 06/29/2020 15:23 INDICATION: [place] toed. TECHNIQUE: Frontal and lateral projections of the right foot. There is no prior study for compariso n. FINDINGS: Mild pes planus. Mildly wide appearance to the 1st and 2nd digits, congenital. Small infer ior calcaneal spur. There are no acute fractures or dislocations identified. There is no subcutaneou s gas. The soft tissue is unremarkable. There are no radiopaque foreign bodies. IMPRESSION: Mild pes planus. Mildly wide 1st, 2nd toe space. Reviewed, dictated and finalized at location A. SSION LIAISON
== END 2020-06-29 14:54 | disposition home or self-care (01) ==
LOC: ANHIMG 14:57
PROVIDERS: Visit Provider Internal Medicine
DX: M35.9 Systemic involvement of connective tissue, unspecified (principal); M19.90 Unspecified osteoarthritis, unspecified site; M21.42 Flat foot [pes planus] (acquired), left foot; M21.41 Flat foot [pes planus] (acquired), right foot; M19.042 Primary osteoarthritis, left hand; M19.041 Primary osteoarthritis, right hand
CPT/HCPCS: 73130; 73620

== ENCOUNTER 2020-07-01 10:39 | Outpatient (CLI) | payer MEDICARE, SELFPAY ==
[2020-07-01 11:09] LABS: Basophils Percent Auto 0.6 % (0.2-1.2); Eosinophils Absolute Auto 0.1 K/mm3 (0-0.3); Eosinophils Percent Auto 1.2 % (0-4.4); Hematocrit 43.6 % (37.0-47.0); Hemoglobin 13.8 g/dL (12.0-15.0); Immature Granulocyte Absolute 0.01 K/mm3 (0.00-0.031); Immature Granulocyte Percent A 0.2 % (0-0.5); Lymphocytes Absolute Auto 1.78 K/mm3 (0.9-3.2); Lymphocytes Percent Auto 27.4 % (18.3-44.2); Mean Corpuscular HGB Conc 31.7 g/dl (32-36); Mean Corpuscular Hemoglobin 29.7 pg (26-34); Mean Platelet Volume 9.3 fl (7.4-10.4); Monocytes Absolute Auto 0.4 K/mm3 (0.1-0.6); Monocytes Percent Auto 5.9 % (2.6-8.5); Neutrophils Absolute Auto 4.2 K/mm3 (1.3-6.7); Neutrophils Percent Auto 64.7 % (45.5-73.1); Platelet Count Result 214 k/mm3 (150-375); Red Blood Count 4.64 M/mm3 (4.2-5.4); Red Cell Distribution Width 13.2 % (11.5-14.5); White Blood Count 6.5 K/mm3 (4.5-10.0)
[2020-07-01 11:17] LABS: Hemoglobin A1C 5.4 % (<5.7)
[2020-07-01 11:22] LABS: Cholesterol 119 mg/dL (0-200); HDL Direct 61 mg/dL; Triglycerides 85 mg/dL (<150)
[2020-07-01 11:26] LABS: Alanine Aminotransferase 13 U/L (4-35); Albumin Level 4.1 g/dL (3.5-5.1); Alkaline Phosphatase 63 U/L (38-126); Anion Gap 3 mmol/L (8-16); Aspartate Amino Transferase 18 U/L (14-36); Bilirubin,Total 0.3 mg/dL (0.2-1.3); Blood Urea Nitrogen 14 mg/dL (7-17); CRP < 0.5 mg/dL (<1.0); Calcium 9.4 mg/dL (8.4-10.2); Carbon Dioxide 31 mmol/L (22-30); Chloride 107 mmol/L (98-107); Estimated Glomerular Filt Rate > 60; Glucose 93 mg/dL (65-105); Potassium 4.4 mmol/L (3.4-5.0); Sodium 141 mmol/L (137-145)
[2020-07-01 11:31] LABS: Complement C3 121 mg/dL (88-165); Rheumatoid Factor < 8.6 IU/ML (<12)
[2020-07-01 11:33] LABS: LDL Cholesterol Direct 40 mg/dL
[2020-07-01 11:42] LABS: Creatinine Urine 114.9 mg/dL
[2020-07-01 11:53] LABS: MALB Creatinine Ratio < 5.2 mg/g (0-30); Microalbumin Urine Random < 6.0 mg/L (0-16.7)
[2020-07-01 11:54] LABS: Thyroid Stimulating Hormone 0.807 uIU/mL (0.465-4.680)
[2020-07-01 12:58] LABS: Erythrocyte Sedimentation Rate 16 mm/hr (0-20)
[2020-07-06 10:58] LABS: Anti Cyclic Citrullinated Pept <16 Units (<20)
[2020-07-07 11:43] LABS: SS-A <1.0; SS-B <1.0
[2020-07-08 06:53] LABS: SM Antibody <1.0; SM/RNP Antibody <1.0
== END 2020-07-01 10:40 | disposition home or self-care (01) ==
LOC: ANHLAB 10:47
PROVIDERS: Referring Provider Internal Medicine; Visit Provider Internal Medicine
DX: M35.9 Systemic involvement of connective tissue, unspecified (principal); M19.90 Unspecified osteoarthritis, unspecified site; E11.9 Type 2 diabetes mellitus without complications; M79.7 Fibromyalgia; E78.2 Mixed hyperlipidemia
CPT/HCPCS: 36415; 80053; 80061; 82043; 83036; 84443; 85025; 85652; 86038; 86140; 86160; 86200; 86225; 86235; 86430

== ENCOUNTER 2020-12-15 05:36 | Emergency (ER) | payer MEDICARE, SELFPAY ==
[2020-12-15 05:44] VITALS: BP 138/84; PULSE 77; RESP 18; TEMP 36.6; O2SAT 100
--- NOTE | 2020-12-15 06:47 | ED.EYEPROB ---
HPI - Eye Problem General Chief complaint: Eye Problems Stated complaint: eye discomfort Time Seen by Provider: 12/15/20 05:47 History of Present Illness HPI Narrative: Patient presents with foreign body sensation in her right eye. Patient ports history of corneal erosions bilaterally and has bandage contact lenses in place reports she has had this for approximately 1 year. This morning she had a sudden foreign body sensation under her contact lens reports she has a lot of pain on her right eye. She does report some photosensitivity. Related Data Home Medications Medication Instructions Recorded Confirmed calcium carbonate 600 mg calcium 600 mg PO DAILY 04/14/19 06/27/20 (1,500 mg) tablet gabapentin 300 mg PO HS 05/27/19 06/27/20 oxycodone-acetaminophen 7.5 mg-325 1 tablet PO Q6H PRN 10/15/19 06/27/20 mg tablet melatonin 1 mg tablet 5 mg PO HS PRN tablet 06/27/20 06/27/20 phentermine 15 mg disintegrating mg PO 08/16/20 tablet topiramate 50 mg tablet 50 mg PO BID 08/16/20 Allergies Allergy/AdvReac Type Severity Reaction Status Date / Time cephalexin Allergy Unknown Swelling Verified 08/16/20 09:33 Review of Systems Review of Systems: CONSTITUTIONAL: Denies fever, chills, or sweats. EYES: Denies visual changes, redness. ENT: Denies rhinorrhea, congestion, sore throat, or otalgia. CARDIOVASCULAR: Denies chest pain, palpitations, or edema. RESPIRATORY: Denies cough or dyspnea. GASTROINTESTINAL: Denies abdominal pain, nausea, vomiting, or diarrhea. GENITOURINARY: Denies dysuria or hematuria. SKIN: Denies rash or itching. MUSCULOSKELETAL: Denies back pain, joint pain, or myalgia. NEUROLOGIC: Denies headache, numbness, dizziness, or weakness. PSYCHIATRIC: Denies anxiety or depression. All systems reviewed & are unremarkable except as noted in HPI and below PMFSH Past Medical History Medical History Asthma Back pain Cataracts, bilateral Cervical cancer Status post LEEP. Attempts to remove her cervix were unsuccessful due to severe adhesions to the bladder, reportedly. Chronic pain Depression Eczema Endometriosis Fatty liver Fibromyalgia Generalized osteoarthritis of multiple sites GERD (gastroesophageal reflux disease) H/O primary tuberculosis H/O TB (tuberculosis) Hypertension Inflammatory arthritis Irritable bowel Kidney stones Morbidly obese Obstructive sleep apnea Moderate obstructive sleep apnea on sleep study in August 2016. STD (sexually transmitted disease) Tobacco dependence Tuberculosis Treated for active tuberculosis at age 9 months. Type 2 diabetes mellitus Undifferentiated connective tissue disease Surgical History Surgical History History of local excision of skin lesion Status post appendectomy Status post section Status post laparoscopic supracervical hysterectomy Family History Family History Father Family history of tuberculosis, Onset Age: 86 Cerebrovascular accident, Onset Age: 86 Mother Family history of tuberculosis Family history of congestive heart failure Family history of thyroid disease Diabetes mellitus Family history of obesity Family history of mental disorder Hypertension Patient's mother is in good health Family history of cardiovascular disease Family history of hepatitis Sibling Family history of osteoporosis Depression Asthma Social History Social History Social History: The patient lives in [place]. She is . She designates her mother as her surrogate decision maker and wishes to be a full code. She smokes up to 1/2 packs of cigarettes per day. No alcohol or drug abuse. Alcohol intake: never Substance use: never Gender identity (if verbalized by the patient): Female Spiritual care
== END 2020-12-15 07:09 | disposition home or self-care (01) ==
PROVIDERS: Emergency Provider Emergency Medicine; PCP Internal Medicine
DX: H57.11 Ocular pain, right eye (principal); J45.909 Unspecified asthma, uncomplicated; I10 Essential (primary) hypertension; K58.9 Irritable bowel syndrome, unspecified; N80.9 Endometriosis, unspecified; M79.7 Fibromyalgia; M19.90 Unspecified osteoarthritis, unspecified site; Z85.41 Personal history of malignant neoplasm of cervix uteri; Z87.442 Personal history of urinary calculi; Z86.11 Personal history of tuberculosis; F17.210 Nicotine dependence, cigarettes, uncomplicated; Z79.84 Long term (current) use of oral hypoglycemic drugs
CPT/HCPCS: 99282

== ENCOUNTER → 2021-05-01 01:30 | Outpatient (CLI) | payer MEDICARE, SELFPAY ==
[2021-05-01 13:21] LABS: Influenza Control Positive
[2021-05-01 21:23] LABS: SARS-CoV-2 RNA PCR Negative
== END ==
PROVIDERS: PCP Internal Medicine; Visit Provider Internal Medicine
DX: J06.9 Acute upper respiratory infection, unspecified (principal); R68.89 Other general symptoms and signs; Z20.822 Contact with and (suspected) exposure to COVID-19
CPT/HCPCS: 87804; C9803; U0003; U0005

== ENCOUNTER 2021-07-14 12:34 | Outpatient (CLI) | payer MEDICARE, SELFPAY ==
[2021-07-14 13:07] LABS: Anion Gap 4 mmol/L (8-16); Blood Urea Nitrogen 22 mg/dL (7-17); Calcium 9.5 mg/dL (8.4-10.2); Carbon Dioxide 26 mmol/L (22-30); Chloride 108 mmol/L (98-107); Estimated Glomerular Filt Rate > 60; Glucose 90 mg/dL (65-110); Potassium 4.1 mmol/L (3.4-5.0); Sodium 138 mmol/L (137-145)
[2021-07-14 13:15] LABS: Hemoglobin A1C 5.2 % (<5.7)
[2021-07-14 13:34] LABS: Creatinine Urine 77.6 mg/dL
[2021-07-14 13:39] LABS: MALB Creatinine Ratio < 7.7 mg/g (0-30); Microalbumin Urine Random < 6.0 mg/L (0-16.7)
== END 2021-07-14 12:35 | disposition home or self-care (01) ==
LOC: ANHLAB 12:36
PROVIDERS: PCP Internal Medicine; Visit Provider Internal Medicine
DX: E11.9 Type 2 diabetes mellitus without complications (principal)
CPT/HCPCS: 36415; 80048; 82043; 83036

== ENCOUNTER 2021-11-08 16:10 | Outpatient (CLI) | payer OTHER, SELFPAY ==
--- NOTE | ~2021-11-08 | CT_ITS ---
EXAMINATION: CT brain wo con DATE: 11/08/2021 16:43 INDICATION: Worsening migraines TECHNIQUE: Computed tomography (CT) of the head was performed without intravenous contrast. Sagittal and coronal reconstructions were performed. The mA was adjusted according to patient size. Iterative reconstruction technique was employed. The dose-length product was 605.33 mGy-cm. COMPARISON: None FINDINGS: No acute intracranial hemorrhage, acute infarction or abnormal extra axial fluid collection. Ventricl es are normal and symmetric. No mass/mass effect. The orbits, paranasal sinuses and mastoid air cells are normal. IMPRESSION: 1. Normal brain. No acute intracranial process. Reviewed, dictated and finalized at location B.
--- NOTE | ~2021-11-08 | CT_ITS ---
EXAMINATION: CT lung screening DATE: 11/08/2021 16:44 INDICATION: Personal history of tobacco dependence. TECHNIQUE: Computed tomography (CT) of the chest was performed without intravenous contrast. The dose -length product was 209.24 mGy-cm. Automated exposure control and iterative reconstruction technique were employed. COMPARISON: CT dated 05/08/2004 FINDINGS: Lung bases are unremarkable. Trace pericardial effusion. Heart size normal. No significant pleural effusion. No endobronchial lesions. There is a left adrenal mass containing macroscopic fat m easuring 3.7 cm, consistent with adrenal myelolipoma. No thoracic lymphadenopathy. No focal airspace consolidation. No pneumothorax. Mild emphysema. No endobronchial lesions. No suspicious pulmonary nod ules or masses. IMPRESSION: 1. Lung-RADS category 1: Negative. Continue annual screening with noncontrast low-dose chest CT in 12 months. Reviewed, dictated and finalized at location A. IMPRESSION: 1. Lung-RADS category 1: Negative. Continue annual screening with noncontrast l ow-dose chest CT in 12 months.
== END 2021-11-08 16:11 | disposition home or self-care (01) ==
PROVIDERS: PCP Internal Medicine; Visit Provider Internal Medicine
DX: Z12.2 Encounter for screening for malignant neoplasm of respiratory organs (principal); Z87.891 Personal history of nicotine dependence; G43.909 Migraine, unspecified, not intractable, without status migrainosus
CPT/HCPCS: 70450; 71271

== ENCOUNTER 2021-12-12 08:38 | Outpatient (CLI) | payer MEDICARE, SELFPAY ==
--- NOTE | ~2021-12-12 | MR_ITS ---
EXAMINATION: MR brain/brain stem wo/w con DATE: 12/12/2021 09:56 INDICATION: Other disorders of pituitary gland. Headache. TECHNIQUE: Magnetic resonance imaging (MRI) of the brain and brainstem was performed without and with 19 mL MultiHance intravenous contrast. COMPARISON: Head CT 11/08/2021 FINDINGS: The pituitary demonstrates a height of 3 mm and concave superior margin. The infundibulum i s at midline. The sella is subjectively mildly enlarged. These findings are consistent with an empty sella. There is no intracranial hemorrhage, acute infarction, or abnormal intracranial mass lesion. T he ventricles are normal in size. There is mild mucosal thickening in the ethmoid sinuses. The mastoi d air cells are normal. IMPRESSION: 1. Empty sella. Reviewed, dictated and finalized at location A. IMPRESSION: 1. Empty sella.
== END 2021-12-12 08:39 | disposition home or self-care (01) ==
LOC: ANHIMG 08:39
PROVIDERS: PCP Internal Medicine; Visit Provider Internal Medicine
DX: E23.6 Other disorders of pituitary gland (principal); R51.9 Headache, unspecified
CPT/HCPCS: 70553; A9577

== ENCOUNTER 2022-09-03 13:05 | Outpatient (CLI) | payer MEDICARE, SELFPAY ==
[2022-09-03 13:49] LABS: Hemoglobin A1C 5.2 % (<5.7)
[2022-09-03 13:50] LABS: Alanine Aminotransferase 18 U/L (6-35); Alkaline Phosphatase 70 U/L (38-126); Anion Gap 6 mmol/L (8-16); Aspartate Amino Transferase 19 U/L (14-36); Bilirubin,Total 0.4 mg/dL (0.2-1.3); Blood Urea Nitrogen 20 mg/dL (7-17); Calcium 8.8 mg/dL (8.4-10.2); Carbon Dioxide 21 mmol/L (22-30); Chloride 110 mmol/L (98-107); Cholesterol 136 mg/dL (0-200); Estimated Glomerular Filt Rate > 60; Glucose 85 mg/dL (65-110); HDL Direct 71 mg/dL; Magnesium 1.8 mg/dL (1.6-2.3); Potassium 3.8 mmol/L (3.4-5.0); Sodium 137 mmol/L (137-145); Triglycerides 141 mg/dL (<150)
[2022-09-03 14:01] LABS: LDL Cholesterol Direct 41 mg/dL
[2022-09-03 20:13] LABS: Vitamin D 25 Hydroxy 37.7 ng/mL
== END 2022-09-03 13:06 | disposition home or self-care (01) ==
PROVIDERS: Internal Medicine; PCP Family Medicine; Visit Provider Family Medicine
DX: E11.9 Type 2 diabetes mellitus without complications (principal); E55.9 Vitamin D deficiency, unspecified; E78.5 Hyperlipidemia, unspecified; Z79.899 Other long term (current) drug therapy
CPT/HCPCS: 36415; 80053; 80061; 82306; 83036; 83735

== ENCOUNTER 2022-09-12 13:22 | Outpatient (CLI) | payer MEDICARE, SELFPAY ==
[2022-09-12 13:45] LABS: Hematocrit 42.7 % (37.0-47.0); Hemoglobin 13.6 g/dL (12.0-15.0); Mean Corpuscular HGB Conc 31.9 g/dl (32-36); Mean Corpuscular Hemoglobin 31.1 pg (26-34); Mean Corpuscular Volume 97.5 fl (80-100); Platelet Count Result 223 k/mm3 (150-375); Red Blood Count 4.38 M/mm3 (4.2-5.4); Red Cell Distribution Width 12.6 % (11.5-14.5); White Blood Count 6.1 K/mm3 (4.5-10.0)
== END 2022-09-12 13:23 | disposition home or self-care (01) ==
PROVIDERS: PCP Family Medicine; Visit Provider Family Medicine
DX: K76.0 Fatty (change of) liver, not elsewhere classified (principal); I73.9 Peripheral vascular disease, unspecified; M35.9 Systemic involvement of connective tissue, unspecified
CPT/HCPCS: 36415; 85027